=== PATIENT | male | born 2000 | race Two or more races ===

== ENCOUNTER 2024-09-06 21:08 | Emergency (ER) | payer OTHER ==
[~2024-09-06] VITALS: Ht 177.8 cm; Wt 72.6 kg
[~2024-09-06 21:08] MED LIST: CLARINEX5 MG/TAB PO
[2024-09-07 00:21] LABS: HEMOGLOBIN 14.4 g/dL (13-16.00); MEAN CORPUSCULAR HEMOGLOBIN 22.7 pg (27.00-32.0); MEAN CORPUSCULAR HGB CONC 32.7 g/dl (32.0-36.0); PLATELET COUNT 219 K/uL (150-450); RED BLOOD COUNT 6.33 M/uL (4.00-6.00); RED CELL DISTRIBUTION WIDTH 14.9 % (11.5-14.5)
[2024-09-07 00:23] LABS: MEAN CELL VOLUME 69.6 fL (80.0-100.00)
== END 2024-09-07 06:00 | disposition home or self-care (01) ==
LOC: ER 21:10
PROVIDERS: Preventive Medicine Public Health & General Preventive Medicine
DX: J06.9 Acute upper respiratory infection, unspecified (principal); Z88.6 Allergy status to analgesic agent; D70.8 Other neutropenia; Z20.822 Contact with and (suspected) exposure to COVID-19